=== PATIENT | male | born 2000 | race Caucasian/White ===

== ENCOUNTER → 2019-09-02 09:28 | Outpatient (CLI) | payer OTHER, SELFPAY ==
--- NOTE | ~2019-09-02 | MR_ITS ---
EXAMINATION: MR elbow RT wo con DATE: 09/02/2019 10:14 INDICATION: Right elbow pain. TECHNIQUE: Magnetic resonance imaging (MRI) of the right elbow was performed without intravenous cont rast. Sequences included coronal, axial, and sagittal PD-weighted FS FSE and coronal, axial, and sagi ttal PD-weighted FSE. COMPARISON: None FINDINGS: Osseous/other: Bone alignment is normal. No fracture. There is failure of fat suppression in some areas. Capitellum demonstrates a large osteochondral lesion with bone volume loss and a small loose body. Tendons: Biceps tendon and brachialis tendon are normal. There is edema in brachialis muscle belly, consistent with mild strain. The common flexor tendon are normal. There is mild common extensor tendinopathy. Ligaments: Radial collateral ligament and ulnar collateral ligament are intact. There is a partial tear of ulnar collateral ligament at its distal attachment. Cubital tunnel: The ulnar nerve is normal. Fluid: There is no glenohumeral joint effusion. IMPRESSION: 1. Mild strain of brachialis muscle (grade 1). 2. 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 3. Partial tear of ulnar collateral ligament and its distal attachment. 4. Mild common extensor tendinopathy. Reviewed, dictated and finalized at location A.
== END ==
PROVIDERS: PCP Family Medicine
DX: S53.441A Ulnar collateral ligament sprain of right elbow, initial encounter (principal); X58.XXXA Exposure to other specified factors, initial encounter
CPT/HCPCS: 73221